=== PATIENT | male | born 1965 | race Caucasian/White ===

== ENCOUNTER 2016-10-29 14:37 | Observation (INO) | payer MEDICAID, OTHER ==
--- NOTE | 2016-10-29 14:48 | CPEKG ---
Heart Rate: 54 RR Interval: 1111 P-R Interval: 160 QRSD Interval: 94 QT Interval: 440 QTC Interval: 417 P [place]: 68 QRS [place]: 65 T Wave [place]: 38 EKG Severity - NORMAL ECG - EKG Impression: SINUS RHYTHM Electronically Signed By: Pastora Solomon 29-Oct-2016 16:22:07
[2016-10-29 15:57] LABS: % IMMATURE GRANULYOCYTES 0.4 % (0.0-1.1); ABSOLUTE IMMATURE GRANULOCYTES 0.03 10^3/uL (0.00-0.10); ADD DIFF? NO; ADD MORPH? NO; ADD SCAN? NO; ATYPICAL LYMPHOCYTE FLAG 10 (0-99); FRAGMENT RBC FLAG 0 (0-99); HEMATOCRIT 41.2 % (40.0-51.0); HEMOGLOBIN 14.7 g/dL (13.7-17.5); LEFT SHIFT FLG 0 (0-99); LIPEMIA HEMOLYSIS FLAG 90 (0-99); MEAN CELL HEMOGLOBIN 35.5 pg (27.9-34.1); MEAN CELL HEMOGLOBIN CONCENTR. 35.7 g/dL (32.4-36.7); MEAN CELL VOLUME 99.5 fL (81.5-99.8); MEAN PLATELET VOLUME 9.4 fL (8.7-11.7); PLATELET CLUMPS FLAG 0 (0-99); PLATELET COUNT 243 10^3/uL (150-400); RED BLOOD CELL COUNT 4.14 10^6/uL (4.40-6.38); RED CELL DISTRIBUTION WIDTH 12.1 % (11.5-15.2)
[2016-10-29 16:00] LABS: ANION GAP 11 mEq/L (8-16); CALCIUM 9.8 mg/dL (8.5-10.4); CARBON DIOXIDE 24 mEq/l (22-31); CHLORIDE 104 mEq/L (97-110); GLOMERULAR FILTRATION RATE > 60; GLUCOSE 72 mg/dL (70-100); POTASSIUM 3.8 mEq/L (3.5-5.2); SODIUM 139 mEq/L (134-144)
--- NOTE | 2016-10-29 16:08 | EDPHY ---
H & P Time Seen by Provider: 10/29/16 15:58 HPI/ROS: Chief complaint. Chest pain HPI. A 51-year-old male presents emergency department with several weeks of intermittent left anterior chest discomfort. He describes it as squeezing. 2 days ago he was walking up in [place] and became dizzy and somewhat short of breath and near syncopal. He had chest discomfort that was in the left anterior chest and radiating through to his left shoulder blade. He checked his pulse and found to be 47. He has found his symptoms tend to be worse with going to elevation and with exertion. He did have similar symptoms about 6 months ago that he attributed to stress and never had it worked up. He has no fever cough. No unusual leg pain or swelling. ROS Constitutional. no fever/chills, no weakness Eyes. no problems with vision ENT. no sore throat, no nasal drainage Cardiovascular. Left chest pain Respiratory. Occasional shortness of breath Abdominal. no abdominal pain, no nausea/vomiting, no diarrhea . no problems urinating MS. no calf pain/swelling, no neck/back pain, no joint pain Skin. no rash Lymph. no swollen glands Neuro. Occasional dizziness with exertion Past Medical/Surgical History: Healthy Grandfather NC age 62. Father had coronary artery bypass graft age 59 Social History: Single, nonsmoker, no Smoking Status: Never smoked Physical Exam: General Appearance: Alert well-developed male mild distress vital signs are stable Eyes: Pupils equal and round no pallor or injection. ENT, Mouth: Mucous membranes are moist. Respiratory: There are no retractions, lungs are clear to auscultation. Cardiovascular: Regular rate and rhythm. Gastrointestinal: Abdomen is soft and nontender, no masses, bowel sounds normal. Neurological: Awake and alert, sensory and motor exams grossly normal. Skin: Warm and dry, no rashes. Musculoskeletal: Neck is supple nontender. Extremities symmetrical, full range of motion. Psychiatric: Patient is oriented X 3, there is no agitation. Constitutional: Initial Vital Signs Temperature (C) 37.8 C 10/29/16 14:39 Heart Rate 68 10/29/16 14:39 Respiratory Rate 14 10/29/16 14:39 Blood Pressure 168/90 H 10/29/16 14:39 O2 Sat (%) 98 10/29/16 14:39 O2 Delivery Mode Room Air Allergies/Adverse Reactions: No Known Allergies Allergy (Unverified 10/29/16 14:42) Medical Decision Making - Diagnostics EKG Interpretation: EKG interpreted by me shows normal sinus rhythm with normal interval and axis. QRS is normal there is no significant ST elevation or depression. No arrhythmia. The rate is 54 Imaging Results: Imaging Impressions Chest X-Ray 10/29/16 16:35 Impression: Normal. One-view chest x-ray is normal Procedures: IV normal saline, monitor ED Course/Re-evaluation: Re-evaluation 5:25 p.m.--patient is stable. Patient and I discussed laboratory imaging EKG findings. We discussed treatment plan including recommendation for admission and further evaluation. He expresses understanding and agreement I consulted and discussed case with Dr. Reyes, hospitalist, who agrees to the admission Differential Diagnosis: I considered acute coronary syndrome. I have considered pneumonia pneumothorax. Symptoms are worrisome for coronary artery disease. No evidence for NC. Strong family history has risk factor - Data Points Laboratory Results: Laboratory Results 10/29/16 14:50 10/29/16 14:50 10/29/16 10/29/16 14:50 14:50 WBC 6.90 10^3/uL 10^3/uL (3.80-9.50) RBC 4.14 10^6/uL L 10^6/uL (4.40-6.38) Hgb 14.7 g/dL g/dL (13.7-17.5) Hct 41.2 % % (40.0-51.0) MCV 99.5 fL fL (81.5-99.8) MCH 35.5 pg H pg (27.9-34.1) MCHC 35.7 g/dL g/dL (32.4-36.7) RDW 12.1 % % (11.5-15.2) Plt Count 243 10^3/uL 10^3/uL (150-400) MPV 9.4 fL fL (8.7-11.7) Neut % (Auto) 67.5 % % (39.3-74.2) Lymph % (Auto) 19.9 % % (15.0-45.0) Dougherty % (Auto) 10.3 % % (4.5-13.0) Eos % (Auto) 1.3 % % (0.6-7.6) Baso % (Auto) 0.6 % % (0.3-1.7) Nucleat RBC Rel Count 0.0 % % (0.0-0.2) Absolute Neuts (auto) 4.66 10^3/uL 10^3/uL (1.70-6.50) Absolute Lymphs (auto) 1.37 10^3/uL 10^3/uL (1.00-3.00) Absolute Monos (auto) 0.71 10^3/uL 10^3/uL (0.30-0.80) Absolute Eos (auto) 0.09 10^3/uL 10^3/uL (0.03-0.40) Absolute Basos (auto) 0.04 10^3/uL 10^3/uL (0.02-0.10) Absolute Nucleated RBC 0.00 10^3/uL 10^3/uL (0-0.01) Immature Gran % 0.4 % % (0.0-1.1) Immature Gran # 0.03 10^3/uL 10^3/uL (0.00-0.10) Sodium 139 mEq/L mEq/L (134-144) Potassium 3.8 mEq/L mEq/L (3.5-5.2) Chloride 104 mEq/L mEq/L (97-110) Carbon Dioxide 24 mEq/l mEq/l (22-31) Anion Gap 11 mEq/L mEq/L (8-16) BUN 16 mg/dL mg/dL (7-23) Creatinine 1.0 mg/dL mg/dL (0.7-1.3) Estimated GFR > 60 Glucose 72 mg/dL mg/dL (70-100) Calcium 9.8 mg/dL mg/dL (8.5-10.4) Troponin I < 0.012 ng/mL ng/mL (0.000-0.034) Departure - Dep[facility]ure [facility] Clinical Impression: Chest pain Qualifiers: Chest pain type: unspecified Qualified Code(s): R07.9 - Chest pain, unspecified Condition: Good Referrals: Gaurav Castanon MD [Primary Care Provider] - As per Instructions
[2016-10-29 16:12] LABS: TROPONIN I < 0.012 ng/mL (0.000-0.034)
[2016-10-29] MEDS ORDERED: ONDANSETRON DISINTEGRATING 4 MG TAB PO PRN (20:11)
[2016-10-29] MEDS ORDERED: ONDANSETRON 4 MG/2 ML VIAL IVP PRN (20:11)
[2016-10-29] MEDS ORDERED: ACETAMINOPHEN 325 MG TAB PO PRN (20:11)
--- NOTE | 2016-10-29 20:50 | GHP ---
[f rep st] HISTORY AND PHYSICAL DATE OF ADMISSION: 10/29/2016 CHIEF COMPLAINT: Chest pain. HISTORY OF PRESENT ILLNESS: This is a 51-year-old male with a strong family history for early coron joel disease but with no significant past medical history, who presents with 2 weeks of increasingly frequent chest pressure which he describes as a squeezing sensation, that has been associated with a ctivity. He has also had worsening dyspnea on exertion and decreased exercise tolerance. He has borrego d intermittent episodes of chest pressure when he has not been active, but when he has been anxious. He had similar episodes 6 months ago when he was under a lot of stress, but then his stress resolv ed and his chest pressure resolved. He denies any fevers or chills. He is chest pain free. REVIEW OF SYSTEMS: A 10-point review of systems was obtained and was otherwise negative. PAST MEDICAL HISTORY: Anxiety. MEDICATIONS: Zoloft. SOCIAL HISTORY: No smoking or alcohol. Works in [employer]. Is usually quite active and has high exercise tolerance, but that has decreased in the last several weeks. FAMILY HISTORY: Father had heart disease in his 50s and grandfather as well. Also had 2 uncles alexandro ng of coronary disease. PHYSICAL EXAMINATION: VITAL SIGNS: Afebrile. Blood pressure is 166/58, heart rate 50, oxygen satu ration 97% on room air. GENERAL: Well developed in no apparent distress. HEENT: Anicteric sclera e. Extraocular movements intact. Moist mucous membranes. NECK: Supple. No thyromegaly. LUNGS: Good effort. Clear to auscultation bilaterally. CARDIOVASCULAR: Regular rate and rhythm. No mur murs or gallops. ABDOMEN: Positive bowel sounds. Soft, nontender, nondistended. No hepatosplenom egaly. EXTREMITIES: No clubbing, cyanosis, or edema. SKIN: Without rash. Warm, dry, and intact. NEUROLOGIC: Alert and oriented x3. Moving all 4 extremities equally. PSYCH: Normal mood and af fect. LABORATORY DATA: CBC is normal. Chemistries normal. Troponin is negative. EKG personally reviewe d and interpreted shows some possible ST-segment elevations in V2 and maybe V1, although I think thi s is a product of a poor quality EKG. Chest x-ray personally reviewed and interpreted as normal. ASSESSMENT: This is a 51-year-old male presenting with chest pressure concerning for unstable angin a. PLAN: Rule-out unstable angina. Patient does have a good story for possible underlying coronary di sease. He does have decreased exercise tolerance and dyspnea on exertion, along with exertional mayra st pressure. I have discussed the case with Cardiology who will see the patient in the morning and decide between stress testing and going straight to an angiogram. Will continue to monitor troponin s in the meantime. /[id number]/MODL
[2016-10-30 04:58] LABS: CHOLESTEROL 195 mg/dL (140-220); CHOLESTEROL/HDL RATIO 2.22 RATIO (1.00-4.97); HIGH DENSITY LIPOPROTEIN 88 mg/dL (40-65); LOW DENSITY LIPOPROTEIN 88 mg/dL (80-100); NON-HIGH DENSITY LIPOPROTEIN 107 mg/dL (90-129); TRIGLYCERIDE 97 mg/dL (40-150); VERY LOW DENSITY LIPOPROTEINS 19 mg/dL (8-25)
[2016-10-30 07:59] LABS: INR 1.08 (0.83-1.16); PROTIME(PATIENT) 13.9 SEC (12.0-15.0)
[2016-10-30] MEDS ORDERED: SERTRALINE HCL 50 MG TAB PO SCH (09:00)
[2016-10-30] MEDS ORDERED: ASPIRIN 325 MG TAB PO SCH (09:00)
[2016-10-30] MEDS ORDERED: TEMAZEPAM 15 MG CAP PO PRN (09:33)
[2016-10-30] MEDS ORDERED: DIAZEPAM 5 MG TAB PO ONE (09:33)
[2016-10-30] MEDS ORDERED: NITROGLYCERIN 0.4 MG BTL SL PRN (09:33)
[2016-10-30] MEDS ORDERED: diphenhydrAMINE 25 MG CAP PO ONE (09:33)
--- NOTE | 2016-10-30 10:04 | ECHO ---
[id number] + + [address] : : [place] [address] : : [phone] + Adult Echocardiographic Report + --+ :Name: Eliana SOLIZviviana Date: 10/30/2016 08:25 AM : : Hospital Admission Number: [id number] Location: 2 08: :: 1965 Gender: Male Height: 68 in : :Age: 51 yrs Race: WH Weight: 147 lb : :Reason For Study: CP. dyspnea, decline in excercise : :tolerance BSA: 1.8 meters2 : :History: No previous : + --+ MMode/2D Measurements \T\ Calculations IVSd: 0.99 cm LVIDd: 4.3 cm FS: 45.9 % LVOT diam: 1.8 cm LVPWd: 0.94 cm LVIDs: 2.3 cm EDV(Teich): LVOT area: 83.3 ml ESV(Teich): 2.7 cm2 18.7 ml EF(Teich): 77.6 % LVLd ap4: 7.3 cm SV(MOD-sp4): EDV(MOD-sp4): 62.0 ml 81.0 ml LVLs ap4: 5.3 cm ESV(MOD-sp4): 19.0 ml EF(MOD-sp4): 76.5 % Normal Measurement Values: + + :LVIDd (3.5-5.7cm) IVSd (0.6-1.1cm) LVPWd (0.6-1.1cm) Aortic Root (2.0-3.7cm)Left Atrium (1.5-4.0cm): :LV Vol(d) (76-115ml) LV Vol(s) (29-48ml) Ejec Fraction (50-65%)PV Mao (0.6- 1.2m/s) TV Mao (0.4-1.0m/s) : :MV E Mao (0.8-1.0m/s)MV A Mao (0.3-1.0m/s)LVOT Mao (0.7-1.2m/s) Asc Ao Mao ( 0.9-1.8m/s) : + + Doppler Measurements \T\ Calculations MV E max mao: MV V2 mean: Ao mean PG: LV V1 max: 77.5 cm/sec 43.3 cm/sec 1.8 mmHg 92.3 cm/sec MV A max mao: MV mean PG: Ao V2 mean: LV V1 max P.4 cm/sec 0.97 mmHg 61.8 cm/sec 3.4 mmHg MV E/A: 1.6 MV V2 VTI: 34.3 cm Ao V2 VTI: 22.0 cmLV V1 mean PG: MV dec time: MVA(VTI): 1.5 cm2 JOSE(I,D): 2.4 cm2 1.5 mmHg 0.19 sec LV V1 mean: 58.4 cm/sec LV V1 VTI: 19.9 cm SV(LVOT): 52.9 ml Left Ventricle The left ventricle is normal in size and function. There is normal left ventricular wall thickness. Ejection Fraction = 75%. No regional wall motion abnormalities noted. Right Ventricle The right ventricle is normal in size and function. Atria The left atrial size is normal. Right atrial size is normal. Mitral Valve The mitral valve is normal in structure and function. There is no mitral valve stenosis. There is no mitral regurgitation noted. Tricuspid Valve The tricuspid valve is normal in structure and function. There is no tricuspid stenosis. No tricuspid regurgitation. Aortic Valve The aortic valve is normal in structure and function. There is no aortic stenosis. There is no aortic insufficiency. Pulmonic Valve The pulmonic valve is not well visualized. There is no pulmonic valvular regurgitation. Great Vessels The aortic root is normal size. Pericardium/Pleural There is no pericardial effusion. Conclusion A complete two-dimensional transthoracic echocardiogram was performed (2D, M-mode, Doppler and color flow Doppler). The left ventricle is normal in size and function. Ejection Fraction = 75%. Normal LV wall motion No signficant valvular disease No prior echo Final Reading Physician: Dr Rashida Benitez electronically signed on 10/30/2016 10:03 AM Ordering Physician: Rashida Benitez Performed By: Bee Jones
[2016-10-30] MEDS ORDERED: LIDOCAINE 1% 300 MG/30 ML SDV ONE (10:15)
[2016-10-30] MEDS ORDERED: fentaNYL 100 MCG/2 ML INJ ONE ×2 (10:15→10:58)
[2016-10-30] MEDS ORDERED: HEPARIN 10,000 UNIT/10 ML MDV ONE (10:16)
[2016-10-30] MEDS ORDERED: MIDAZOLAM 2 MG/2 ML VIAL ONE ×2 (10:16→10:58)
[2016-10-30] MEDS ORDERED: VERAPAMIL 5 MG/2 ML VIAL ONE (10:16)
[2016-10-30] MEDS ORDERED: IOPAMIDOL (ISOVUE-370) 150 ML BTL IV ONE (10:16)
--- NOTE | 2016-10-30 10:16 | GCON ---
[f rep st] CONSULTATION CARDIOLOGY CONSULTATION DATE OF CONSULTATION: 10/30/2016 CHIEF COMPLAINT: Chest pain. HISTORY OF PRESENT ILLNESS: We were asked by Dr. Reyes to visit with this patient. The patient is a pleasant, 51-year-old male, with a history of anxiety and a family history of premature coronary d isease (father with bypass at age 59 and grandfather with IA at age 52). Over the past couple of we eks, he has had progressive intermittent chest tightness. He describes a band of cramping pressure over his left chest as well as some occasional associated left scapular pain. This is sometimes mad e worse with exertion. Additionally, he has had a decline in exercise tolerance with new onset dysp joel even walking up a driveway, which is unusual for him as he is in general very active and works [employer]. He feels that he has been able to do less and less physical work over the past s everal months. Also over the past few weeks, he has had a couple of significant episodes of presync ope, to where he had to lie down so that he did not faint. He did not notice any palpitations at th is time. He has not had lower extremity edema, paroxysmal nocturnal dyspnea or orthopnea. Because symptoms have escalated, he presented to the emergency department yesterday afternoon and wa s admitted for further management. Serial troponins have been negative and his initial EKG is nonis chemic. He is currently chest pain free. REVIEW OF SYSTEMS: The patient has been taking some herbal supplements for a chronic parasitic infe ction. He reports that he does see things in his stool that he thinks could be parasites but he has previously had lab testing for this and it has been negative. He has not had significant diuresis, but sometimes feels that his neck alone is sweating. He has not had a history of bleeding problems , urinary problems, nausea, vomiting or diarrhea. Otherwise, a full 10-point review of systems is p erformed and is negative except that which is outlined in history of present illness. ALLERGIES: No known drug allergies. PAST MEDICAL HISTORY: 1. Anxiety. 2. Possible parasitic infection. OUTPATIENT MEDICATIONS: Sertraline, B supplements, multivitamin, herbal preparations that are anti- parasitic. SOCIAL HISTORY: The patient lives alone. He does not smoke cigarettes or smoke marijuana. He crystal es cocaine. He does drink 6 or 7 beers nightly and has done so for the past 4 years. He works in [employer]. FAMILY HISTORY: Father had bypass surgery at age 59. Grandfather had a myocardial infarction at ag e 52. PHYSICAL EXAM: VITAL SIGNS: Blood pressure 130/77, heart rate 42, oxygen saturation 97% on room ai r. He is afebrile. GENERAL: Well-appearing, middle-aged male in no acute distress. HEENT: Scler ae are clear and free of jaundice. Mucous membranes are moist. Normocephalic, atraumatic. CARDIOV ASCULAR: JVP less than 10. Carotids equal and 2+ bilaterally, without bruit. Regular rate and rhy thm without murmur, rub, or gallop. LUNGS: Clear to auscultation bilaterally without wheezes, rhon chi, or rales. ABDOMEN: Soft, nontender, nondistended without bruits, masses, or hepatosplenomegal y. EXTREMITIES: Warm and well perfused without cyanosis, clubbing, or edema. NEURO: Alert and or iented x3 without gross focal neurological deficits. Appropriate mood and affect. LABORATORY DATA: CBC is essentially normal. D-dimer is negative. INR 1.08. Basic metabolic panel is normal. Troponin negative x2. BNP is slightly elevated at 166. Total cholesterol 195, LDL 88, and HDL 88. EKG reviewed by me: Sinus bradycardia. Normal axis and intervals. No ischemic changes. Chest x-ray reviewed by me: Normal. Echocardiogram reviewed by me: Normal LV size and systolic function. No regional wall motion abnor malities. No significant valvular disease. No pericardial effusion. ASSESSMENT AND PLAN: A 51-year-old male with cardiac risk factor of significant family history. He presents with symptoms concerning for unstable angina. His BNP is slightly elevated. He does have 2- troponins and a normal EKG at rest, but his symptoms have come on in an unstable pattern and are progressive. 1. Chest pain and reduced exercise tolerance: I am reluctant to perform stress testing given the p atient's unstable pattern and progress of symptoms and progressive symptoms. Therefore, we will pro ceed directly to coronary angiogram. Risks, benefits and alternatives were reviewed with the patien t and his friend who is at the bedside. He is willing to proceed. Continue aspirin. No beta block ers as he is bradycardic. No statin for now as his LDL is excellent. 2. Presyncope: Bradycardia on the monitor. It is possible that the patient's bradycardia may be c aused by intermittent cardiac ischemia. If his coronary arteries are normal, would have him wear ou tpatient ambulatory monitor for further evaluation of bradyarrhythmias contributing to his lighthead edness. We will also check a TSH. 3. Anxiety: Continue sertraline. 4. Patient reports seeing possible parasites in his stool. This apparently has been ongoing for qu ite some time but he has had negative lab evaluation. I suggested that he see Infectious Disease as an outpatient. Thank you for allowing us to participate in this patient's care. We will follow with you. /[id number]/MODL
--- NOTE | 2016-10-30 10:16 | GCON ---
[f rep st] CONSULTATION ADDENDUM TO CARDIOLOGY CONSULTATION. Final problem: Alcohol abuse. The patient was strongly urged to cut down or eliminate his alcohol intake. /[id number]/MODL
--- NOTE | 2016-10-30 10:24 | CPEKG ---
Heart Rate: 44 RR Interval: 1364 P-R Interval: 176 QRSD Interval: 90 QT Interval: 500 QTC Interval: 428 P Geff: 43 QRS Geff: 69 T Wave Geff: 53 EKG Severity - OTHERWISE NORMAL ECG - EKG Impression: SINUS BRADYCARDIA Electronically Signed By: Usama Marin 31-Oct-2016 15:54:01
[2016-10-30 10:36] LABS: ALBUMIN 3.7 g/dL (3.5-5.0); BILIRUBIN,TOTAL 0.9 mg/dL (0.1-1.4); BILIRUBIN-CONJUGATED 0.3 mg/dL (0.0-0.5); BILIRUBIN-UNCONJUGATED 0.6 mg/dL (0.0-1.1); TOTAL PROTEIN 6.4 g/dL (6.3-8.2)
[2016-10-30] MEDS ORDERED: ATROPINE SULFATE 1 MG/10 ML SYR IVP PRN (11:37)
--- NOTE | 2016-10-30 11:41 | PDDXCAT ---
Diagnostic Cath Note - . 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 2 normal diagonals LCX: normal with 2 normal large OM branches RCA: right dominant. normal EDP: 17 LVEF: 65 Wall motion: normal - Findings-Right Heart Catheterization AO: 114/57 Complications: none Estimated blood loss: <50ml Closure method: TR Band Assessment: Normal coronary arteries and normal LV systolic function Plan: Evaluate for noncardiac chest pain. Consider reflux. Protonix started Patient Problems: Problems Problem Status Onset Chest pain Acute
[2016-10-30] MEDS ORDERED: PANTOPRAZOLE SODIUM 40 MG TAB PO SCH (11:45)
--- NOTE | 2016-10-30 12:26 | HOSPPROG ---
Hospitalist Progress Note Assessment/Plan: #Concern for angina: awaiting cath Consider GERD. Normal echo. Lipids at goal #Elevated TSH: check T3/4 #Diet: NPO for procedure #Disp: awaiting cath Subjective: small amount chest pressure today, no associated symptoms Objective: Vital Signs Temp Pulse Resp BP Pulse Ox 36.9 C 40 L 15 109/69 96 10/30/16 11:47 10/30/16 11:47 10/30/16 12:20 10/30/16 12:16 10/30/16 12:20 10/29/16 10/30/16 10/31/16 05:59 05:59 05:59 Intake Total 500 600 Output Total 0 Balance 500 600 PT 13.9 SEC (12.0-15.0) 10/30/16 07:45 INR 1.08 (0.83-1.16) 10/30/16 07:45 - Physical Exam Constitutional: no apparent distress Eyes: PERRL Ears, Nose, Mouth, Throat: moist mucous membranes Cardiovascular: bradycardia Respiratory: no respiratory distress Gastrointestinal: normoactive bowel sounds Genitourinary: no bladder fullness Skin: warm Musculoskeletal: full muscle strength Neurologic: AAOx3, CN II-XII Intact Psychiatric: interacting appropriately ICD10 Worksheet Patient Problems: Problems Problem Status Onset Chest pain Acute
[2016-10-30 12:38] VITALS: TEMP 98
--- NOTE | 2016-10-30 13:42 | GDS ---
[f rep st] DISCHARGE SUMMARY DISCHARGE DIAGNOSES: 1. Atypical chest pain. 2. Bradycardia. 3. Lightheadedness. HISTORY OF PRESENT ILLNESS: A 51-year-old male with a strong family history of early coronary arter y disease, but no significant past medical history himself, who presented with 2-weeks of increasing and frequent chest pressure, which he describes as a squeezing sensation. This is associated with activity. He also has dyspnea on exertion and decreased exercise tolerance. He had a similar episo de 6-months ago when he was under lot of stress, but his tress resolved as well as that pressure. H e denies any fevers, chills or sweats. He does drink up to 7-beers a day. HOSPITAL COURSE BY PROBLEM: 1. Acute chest pain: Initial concern for angina given symptoms and family history. He underwent a cardiac catheterization, which was normal. Given the extensive alcohol use, we will trial Protonix as this may be alcoholic gastritis. 2. Bradycardia: Not on AV blocking agents. TSH is elevated at 9. Will check a T3, T4, that shoul d be followed up with his Primary Physician. 3. Lightheadedness: We will have him follow up with [facility] on Monday for a 48-hour Holter. His echocardiogram was normal. DISPOSITION: Patient is stable for discharge home. FOLLOWUP: 1. Dr. Benitez. 2. [facility] on Monday10/31/2016 for 48-hour Holter monitor. 3. Labs pending, T3, T4. 4. To follow up with his PCP. /[id number]/MODL
[2016-10-30 14:31] VITALS: O2SAT 99
[2016-10-30 15:36] VITALS: BP 121/71; PULSE 44; RESP 19
== END 2016-10-30 18:07 | disposition home or self-care (01) ==
LOC: INTOOBSV 17:44 → F2W 18:31
PROVIDERS: ADMIT Internal Medicine; ATTEND Internal Medicine
PROC: B2151ZZ Fluoroscopy of Left Heart using Low Osmolar Contrast (ICD-10-PCS; principal; 2016-10-30 11:43)
PROC: 4A023N7 Measurement of Cardiac Sampling and Pressure, Left Heart, Percutaneous Approach (ICD-10-PCS; principal; 2016-10-30 11:43)
PROC: B2111ZZ Fluoroscopy of Multiple Coronary Arteries using Low Osmolar Contrast (ICD-10-PCS; principal; 2016-10-30 11:43)
DX: R07.9 Chest pain, unspecified (principal); R00.1 Bradycardia, unspecified; R42 Dizziness and giddiness; R06.09 Other forms of dyspnea; R55 Syncope and collapse; R19.5 Other fecal abnormalities; F10.10 Alcohol abuse, uncomplicated; R94.6 Abnormal results of thyroid function studies; F41.9 Anxiety disorder, unspecified; Z82.49 Family history of ischemic heart disease and other diseases of the circulatory system
CPT/HCPCS: 71010; 93005; 93306; 93458; C1769; G0378; 84481-90; J1644; J2250; J3010; Q9967